=== PATIENT | male | born 2000 | race Caucasian/White ===

== ENCOUNTER 2018-05-25 19:27 | Inpatient (IN) | payer OTHER ==
[2018-05-25 19:36] VITALS: O2SAT 97
--- NOTE | 2018-05-25 20:14 | ED PDOC ---
HPI: Psych/Substance Abuse Time Seen by Provider: 05/25/18 19:57 Chief Complaint (Nursing): Psychiatric Evaluation Chief Complaint (Provider): Suicidal History Per: Patient History/Exam Limitations: no limitations Onset/Duration Of Symptoms: Days (few days) Additional Complaint(s): Pt. is suicidal, no act on his thoughts. Feels depressed. Not homicidal. No drugs, etoh, weakness, headaches, dizziness, chest pain. No abd pain. Past Medical History Reviewed: Nursing Documentation, Vital Signs Vital Signs: Last Vital Signs Temp 98 F 05/25/18 19:31 Pulse 63 05/25/18 19:31 Resp 16 05/25/18 19:31 BP 124/60 05/25/18 19:31 Pulse Ox 97 05/25/18 19:31 - Medical History PMH: Bipolar Disorder Denies: Diabetes, Hepatitis, HIV, HTN, Chronic Kidney Disease, Seizures, Sexually Transmitted Disease - Surgical History Surgical History: No Surg Hx - Family History Family History: States: Unknown Family Hx - Home Medications Home Medications: Ambulatory Orders Medication Instructions Recorded No Known Home Med 08/01/14 - Allergies Allergies/Adverse Reactions: Allergies Allergy/AdvReac Type Severity Reaction Status Date / Time Penicillins Allergy RASH Verified 05/25/18 19:31 Review of Systems ROS Statement: Except As Marked, All Systems Reviewed And Found Negative Psych: Positive for: Depression, Suicidal ideation Physical Exam - Reviewed Nursing Documentation Reviewed: Yes Vital Signs Reviewed: Yes - Physical Exam Appears: Positive for: Non-toxic, No Acute Distress Head Exam: Positive for: ATRAUMATIC, NORMAL INSPECTION, NORMOCEPHALIC Skin: Positive for: Normal Color, Warm, DRY Eye Exam: Positive for: EOMI, Normal appearance, PERRL ENT: Positive for: Normal ENT Inspection Neck: Positive for: Normal, Painless ROM Cardiovascular/Chest: Positive for: Regular Rate, Rhythm Respiratory: Positive for: CNT, Normal Breath Sounds Gastrointestinal/Abdominal: Positive for: Normal Exam, Soft Back: Positive for: Normal Inspection. Negative for: L CVA Tenderness, R CVA Tenderness Extremity: Positive for: Normal ROM Neurological/Psych: Positive for: Awake, Alert, Normal Tone - ECG O2 Sat by Pulse Oximetry: 97 Pulse Ox Interpretation: Normal - Progress ED Course And Treament: 2350: Crisis saw pt. and will admit. AAOx3. Medically stable for crisis. Disposition - Clinical Impression Clinical Impression: Depression - Patient ED Disposition Is Patient to be Admitted: Yes Counseled Patient/Family Regarding: Studies Performed, Diagnosis - Disposition Disposition Time: 19:01 Condition: STABLE - Pt Status Changed To: Hospital Disposition Of: Inpatient - Admit Certification Admit to Inpatient:: After my assessment, the patient will require hospitalization for at least two midnights. This is because of the severity of symptoms shown, intensity of services needed, and/or the medical risk in this patient being treated as an outpatient. - POA Present On Arrival: None
[2018-05-25 21:28] LABS: BENZODIAZEPINES, UR NEGATIVE (NEGATIVE)
[2018-05-25 21:29] LABS: BARBITURATES, UR NEGATIVE (NEGATIVE); OPIATES, UR NEGATIVE (NEGATIVE); PHENCYCLIDINE, UR NEGATIVE (NEGATIVE)
[2018-05-26] MEDS ORDERED: DiphenhydrAMINE 50 mg/ml Inj IM PRN (00:48)
[2018-05-26] MEDS ORDERED: Magnesium Hydroxide Susp 30 ml UD PO PRN (00:48)
[2018-05-26] MEDS ORDERED: Alum-Mag Hydrox-Simethicone Susp (30 mL) PO PRN (00:48)
--- NOTE | 2018-05-26 01:16 | PCM.BM ---
<Sara Fine - Last Filed: 05/26/18 01:14> Treatment Plan Problems - Problems identified on initial assessmt High Risk: Violence Date Initiated: 05/26/18 Time Initiated: 01:14 Assessment reference: NA Status: Active Ineffective Coping Date Initiated: 05/26/18 Time Initiated: 01:14 Assessment reference: NA Status: Active Treatment assets and liabiliti Patient Assests: cooperative, ADL independent, physically healthy (Hx violent behaviors and been incarceratied for aggravated assault), good support system, negotiates basic needs, cognitively intact Patient Liabilities: financial problems, relationship conflicts, substance abuse - Milieu Protocol Maintain good personal hygiene: daily Encourage regular showers, daily Remind patient to perform daily oral care, daily Assist patient to perform ADL's Conduct patient checks and document Observation sheet: Q15 minutes Maintain personal safety: every shift Educate patient to report safety concerns to staff, every shift Monitor environment for contraband/sharps Medication safety: Monitor for expected outcome, potential side effects: every shift, Assess barriers to learning: every shift, Assess readiness for medication education: every shift <Angel Alvarez - Last Filed: 05/31/18 09:08> - Diagnosis (1) Bipolar 1 disorder Status: Acute Interventions: start mood stabilizer/ abilify 05/31/18 09:08 <Brook Deshpande - Last Filed: 05/31/18 14:00> Treatment assets and liabiliti Patient Assests: adapts well, cooperative, educated (Pt. reports a 10th grade education and plans to complete a GED.), insightful, motivated, resourceful, ADL independent, physically healthy, good support system (Pt. reports having a loving and circumstantially supportive relationship with parents, 3 younger siblings (1 younger brother ), and cousins. ), cognitively intact Patient Liabilities: live alone (Pt. reports recently being kicked out of maternal grandmothers home and having to go live with paternal grandmother. Pt. reports plan to return to grandmothers home. ), financial problems (Pt. reports limited employment hx working through [employer] agencies. Pt. denies having financial resources and reports difficulties finding employment secondary to criminal record.), relationship conflicts (Pt. reports discord with uncle. Pt. reports mother resides in [place], explaining not being able to live with her to avoid being around people who got me in trouble and not wanting to burden mother. ), substance abuse (Pt. reports hx of polysubstance abuse (Xanax, ETOH, cannabis) since age 12. Pt. reports maternal grandmother began giving pt. Xanax at age 12 to control the anger. Pt. reports hx of [place] substance abuse tx [place] age 13 (completed 27 days; kicked out for fighting). Pt. reports longest period of sobriety as 8 months (while incarcerated). Pt. reports recent Xanax, etoh, and cannabis abuse. ), legal issue (Pt. reports recently serving 8 months for aggravated assault in [facility]. Pt. currently on probation in [facility] and reports that terms are not using and not getting in trouble.) Family Contact Family involvement: Family/SO is involved Family contact: Patient agrees to contact, Family has been contacted by patient Family contact name: Pablo(father)([phone]) Family contacted how many times per week?: 2 Family contact comment: Automatic Cigar Wrapper Tender placed call to pts father (Pablo [phone]) to discuss pts progress on 3NP/ discharge planning, collect further collateral, and address family concerns. Automatic Cigar Wrapper Tender provided clinical updates regarding pts progress since admission. Automatic [employer]ig[employer] W[employer] Tender provided psychoeducation regarding nature of tx provided on 3NP, pts current medication management, and aftercare. [employer] Cig[employer] W[employer] Tender notified pts father that pt. has requested to be referred to a co-occurring IOP with [facility] and has demonstrated improvement in insight regarding illness/bxs and motivation for tx. Automatic Cigar Wrapper Tender emphasized importance of adherence with aftercare to improve functioning/ensure safety in the community and reduce risk of future hospitalizations. Pts father expressed understanding of the above and being glad that pt. is engaging in tx. Pts father expressed concerns regarding pts presentation on 05/30, explaining that pt. was more irritable and labile that on the days prior. Automatic Cig[employer] Wrapper Tender explained that this bx was noted by tx team and that medications are being adjusting to address irritability, lability, and poor sleep. Pts father requested to be contacted on day of discharge to schedule pick-up time. Automatic Cigar Wrapper Tender received call from Dr. Alvarez shortly after reporting plan to stop Abilify secondary to increase in irritability and restlessness. Trileptal to be started. Pt. anticipated to remain on 3NP through the weekend for further stabilization. Automatic Cigar Wrapper Tender placed 2nd call to pts father following conversation with Dr. Alvarez. Pts father notified of the above. Pts father expressed understanding and denied having concerns. - Goals for Treatment Patient goals for treatment: Patient to continue stabilization on 3NP through medication management and group/supportive therapy to address sxs of depression as exhibited by restlessness, impulsivity, irritability, and eliminate SI. Patient to be encouraged to attend groups regularly to promote self-awareness, sobriety, anger management and improve insight, impulse control, compliance, coping skills and self-esteem. Patient to be provided with referral for appropriate level of aftercare to reduce risk of future hospitalizations and ensure safety in the community. Discharge/Continuing Care - Education Needs Education Needs: Patient Medication, Patient Diagnosis/Disease Process, Patient Coping Skills, Patient Anger Management skills, Patient Community resources, Patient Aftercare Safety Plan - Discharge Discharge Criteria: Tolerates medication w/o severe side effects, Free of Suicidal thoughts, Free of agitation, Normal sleep pattern, Ability to care for self, Reduction of target symptoms (restlessness ; irritability) Discharge to:: Home, With Family - Treatment Team Participation Patient/Family/SO Statement: 05/30/18 15:13 Patient attended tx team this morning to discuss progress on 3NP and tx goals. Pt. reported improvement in impulse control and decrease in irritability since admission. Pt. presented with ongoing c/o restlessness and anxiety resulting in feelings of frustration and sadness. Pt. reported sleep disturbances on 05/29 resulting in poor energy/motivation today. Recommended medication changes discussed at length. Pt. expressed understanding and belief that Zoloft was contributing to pts restlessness. Pt. denied SI/HI and was able to contract for safety on 3NP. Pt. expressed motivation for tx and adherence with aftercare. Pt. visible on 3NP and observed socializing appropriately with select peers. Affect remains depressed but brighter than upon admission. Discussed with Family/SO: Yes Was Patient/Family/SO present at Treatment Team Meeting: Yes
--- NOTE | 2018-05-26 09:23 | PCM.PSYCH ---
Initial Psychiatric Evaluation - Initial Psychiatric Evaluation Type of Admission: Voluntary Legal Status: Capacity Chief Complaint (in patient's own words): "I was having suicidal thoughts." Patient's Reaction to Hospitalization: HPI: 18 yo male w/ h/o prior admission to [facility] for ADHD, DMDD, ODD, h/o non- compliance with treatment and medications, presents w/ suicidal ideation w/ plan to jump out of the window. He reports worsening depression, anxiety, feeling of hopelessness and sleep disturbances. He denies acute AH/VH/paranoia/delusions. PPHx: Prior admission to [facility] in 2014 for ADHD, DMDD, ODD; no current psychiatric treatment or medications; h/o treatment w/ Lexapro and Risperdal PMHx: Denies acute/chronic medical issues ALL: PCN SHx: Lives w/ grandmother; completed 9th grade, unemployed; abuses Xanax 2 mg sticks (gets from grandmother or others), abuses cannabis; smokes 5 cig/day (declined smoking cessation) FHx: Denied family h/o mental illness Current Medications: Active Medications Generic Name Dose Route Start Last Admin Trade Name Freq PRN Reason Stop Dose Admin Acetaminophen 650 mg 05/26/18 00:48 Tylenol 325mg Tab PO Q4 PRN pain level 4-7 Al Hydrox/Mg Hydrox/Simethicone 30 ml 05/26/18 00:48 Maalox Plus 30 Ml PO Q4 PRN Dyspepsia Diphenhydramine HCl 50 mg 05/26/18 00:48 Benadryl IM Q6 PRN Extrapyramidal S/S Unable PO Diphenhydramine HCl 50 mg 05/26/18 00:48 Benadryl PO Q6 PRN Extrapyramidal Symptoms Diphenhydramine HCl 50 mg 05/26/18 00:55 05/26/18 02:00 Benadryl PO 50 mg HS PRN Administration Sleep Haloperidol 5 mg 05/26/18 00:48 Haldol PO Q4 PRN Agitation Haloperidol Lactate 5 mg 05/26/18 00:48 Haldol IM Q4 PRN Agitation, Unable to Take PO Lorazepam 2 mg 05/26/18 00:48 Ativan IM Q6H PRN Anxiety/Agitation,Unable PO Lorazepam 1 mg 05/26/18 00:48 Ativan PO Q6H PRN Anxiety/Agitation Magnesium Hydroxide 30 ml 05/26/18 00:48 Milk Of Magnesia PO HS PRN Constipation Sertraline HCl 50 mg 05/26/18 09:15 Zoloft PO DAILY MADAN Past Psychiatric History - Past Psychiatric History Previous Treatment History: Inpatient Pertinent Medical Hx (Current Medical&Sleep Prob, Allergies): Allergies Allergy/AdvReac Type Severity Reaction Status Date / Time Penicillins Allergy RASH Verified 05/25/18 19:31 No Known Home Med 08/01/14 Review of Systems - Psychiatric Psychiatric: As Per HPI, Abnormal Sleep Pattern, Anhedonia, Anxiety, Change in Appetite, Depression, Difficulty Concentrating, Hopelessness, Irritability, Mood Swings, Suicidal Ideation Mental Status Examination - Personal Presentation Personal Presentation: Looks stated age - Affect Affect: Constricted, Depressed - Motor Activity Motor Activity: Calm - Reliability in Providing Information Reliability in Providing Information: Good - Speech Speech: Organized, Coherent - Mood Mood: Depressed, Anxious - Formal Thought Process Formal Thought Process: No Impairment - Obsessions/Compulsions Obsessions: No Compulsions: No - Cognitive Functions Orientation: Person, Place, Situation, Time Sensorium: Alert Attention/Concentration: Attentive Judgement: Intact, as evidence by: Insight regarding need for hospitalization Memory: Recent intact, as evidence by: Ability to recall events of the day, Remote intact, as evidenced by: Abilit to recall sig. life events, Remote intact, as evidenced by: Ability to recall historical events - Risk Risk: Suicidal, Diminished functioning - Strength & Assets Inventory Strength & Assets Inventory: Cooperative DSM 5 DX - DSM 5 DSM 5 Diagnosis: Major Depressive Disorder; Benzodiazepine Use Disorder; Cannabis Use Disorder - Recommended/Plan of Treatment Treatment Recommendations and Plan of Treatment: Major Depressive Disorder; Benzodiazepine Use Disorder; Cannabis Use Disorder -Admit to psychiatry unit -Start Zoloft -Individual and group therapy -Medicine consult -Psychoeducation -Disposition planning Projected ELOS: 5-10 days Discharge Plan and Discharge Criteria: Discharge when patient is psychiatrically stable - Smoking Cessation Smoking Cessation Initiated: No Reason for not providing: Patient declined
--- NOTE | 2018-05-27 08:41 | PCM.PYCHPN ---
Psychiatric Progress Note - Psychiatric Progress Note Patient seen today, length of contact: Pt evaluated, case discussed w/ team, chart reviewed Patient Chief Complaint: "I was having suicidal thoughts." Problems Identified/Issues Discussed: Patient continues to report feeling depressed and anxious. He also reports feelings of anger intermittently. He denies acute suicidal ideation/plan/intent. He is calm and cooperative w/ ticket writer. No adverse effects to medications reported. Medication Change: No Medical Record Reviewed: Yes Consults ordered or reviewed: Medicine consult Mental Status Examination - Cognitive Function Orientation: Person, Place, Situation, Time Memory: Intact Attention: WNL Concentration: WNL Association: WNL Fund of Knowledge: [facility] Decription of patient's judgement and insights: Improving I/J - Mood Mood: Depressed, Anxious - Affect Affect: Constricted, Depressed - Formal Thought Process Formal Thought Process: No Impairment Psychotic Thoughts and Behaviors: No AH/VH/paranoia/delusions - Suicidal Ideation Suicidal Ideation: No - Homicidal Ideation Homicidal Ideation: No Goal/Treatment Plan - Goal/Treatment Plan Need for Continued Stay: Remain at risks for inpatient hospitalization, Severe depression anxiety Progress Toward Problem(s) and Goals/Treatment Plan: Major Depressive Disorder; Benzodiazepine Use Disorder; Cannabis Use Disorder -Continue Zoloft -Individual and group therapy -Medicine consult -Psychoeducation -Disposition planning
--- NOTE | 2018-05-27 15:51 | CP.PCM.CON ---
History of Present Illness - History of Present Illness History of Present Illness: 18 yo male with history of ADHD admitted to psyche unit because of suicidal ideation Review of Systems - Review of Systems All systems: reviewed and no additional remarkable complaints except (aside from those mentioned above, 12 point system review were negative by me) Past Patient History - Tetanus Immunizations Tetanus Immunization: Up to Date - Past Medical History & Family History Past Medical History?: No - Past Social History Smoking Status: Light Smoker < 10 Cigarettes Daily Chewing Tobacco Use: No Cigar Use: No Alcohol: Occasional Drugs: Denies - CARDIAC Hx Cardiac Disorders: No Hx Hypertension: No - PULMONARY Hx Tuberculosis: No - NEUROLOGICAL HX Cerebrovascular Accident: No Hx Seizures: No - HEENT Hx HEENT Problems: No - RENAL Hx Chronic Kidney Disease: No - ENDOCRINE/METABOLIC Hx Endocrine Disorders: No - HEMATOLOGICAL/ONCOLOGICAL Hx Cancer: No Hx Human Immunodeficiency Virus (HIV): No - INTEGUMENTARY Hx Dermatological Problems: No - MUSCULOSKELETAL/RHEUMATOLOGICAL Hx Musculoskeletal Disorders: No - GASTROINTESTINAL Hx Gastrointestinal Disorders: No - GENITOURINARY/GYNECOLOGICAL Hx Sexually Transmitted Disorders: No - PSYCHIATRIC Hx Substance Use: Yes (marijuana, xanax) - SURGICAL HISTORY Hx Surgeries: No - ANESTHESIA Hx Anesthesia: No Meds Allergies/Adverse Reactions: Allergies Allergy/AdvReac Type Severity Reaction Status Date / Time Penicillins Allergy RASH Verified 05/25/18 19:31 - Medications Medications: Current Medications Acetaminophen (Tylenol 325mg Tab) 650 mg PO Q4 PRN PRN Reason: pain level 4-7 Al Hydrox/Mg Hydrox/Simethicone (Maalox Plus 30 Ml) 30 ml PO Q4 PRN PRN Reason: Dyspepsia Diphenhydramine HCl (Benadryl) 50 mg IM Q6 PRN PRN Reason: Extrapyramidal S/S Unable PO Diphenhydramine HCl (Benadryl) 50 mg PO Q6 PRN PRN Reason: Extrapyramidal Symptoms Last Admin: 05/26/18 13:56 Dose: 50 mg Diphenhydramine HCl (Benadryl) 50 mg PO HS PRN PRN Reason: Sleep Last Admin: 05/26/18 22:02 Dose: 50 mg Haloperidol (Haldol) 5 mg PO Q4 PRN PRN Reason: Agitation Last Admin: 05/26/18 13:56 Dose: 5 mg Haloperidol Lactate (Haldol) 5 mg IM Q4 PRN PRN Reason: Agitation, Unable to Take PO Lorazepam (Ativan) 2 mg IM Q6H PRN PRN Reason: Anxiety/Agitation,Unable PO Lorazepam (Ativan) 1 mg PO Q6H PRN PRN Reason: Anxiety/Agitation Last Admin: 05/26/18 13:56 Dose: 1 mg Magnesium Hydroxide (Milk Of Magnesia) 30 ml PO HS PRN PRN Reason: Constipation Sertraline HCl (Zoloft) 50 mg PO DAILY MADAN Last Admin: 05/27/18 11:58 Dose: 50 mg Physical Exam - Constitutional Appears: No Acute Distress - Head Exam Head Exam: ATRAUMATIC - Eye Exam Eye Exam: absent: Scleral icterus - ENT Exam ENT Exam: Mucous Membranes Moist - Neck Exam Neck exam: Negative for: Meningismus - Respiratory Exam Respiratory Exam: absent: Rales, Rhonchi, Wheezes, Respiratory Distress - Cardiovascular Exam Cardiovascular Exam: REGULAR RHYTHM, +S1, +S2 - GI/Abdominal Exam GI & Abdominal Exam: Soft. absent: Tenderness - Rectal Exam Rectal Exam: Deferred - Neurological Exam Neurological exam: Alert, Oriented x3 - Psychiatric Exam Psychiatric exam: Normal Affect - Skin Skin Exam: Dry, Intact Results - Vital Signs Recent Vital Signs: Last Vital Signs Temp 97.8 F 05/27/18 09:00 Pulse 73 05/27/18 09:00 Resp 18 05/27/18 09:00 BP 109/68 05/27/18 09:00 Pulse Ox 97 05/26/18 00:06 Assessment & Plan (1) Suicidal ideation Status: Acute Comment: psyche is managing
[2018-05-28 06:40] LABS: ALB/GLOB RATIO 1.2 (1.0-2.1); ALBUMIN 4.5 g/dL (3.5-5.0); ALT/SGPT 18 U/L (21-72); AST/SGOT 19 U/L (17-59); BLOOD UREA NITROGEN 22 mg/dl (9-20); CALCIUM 9.5 mg/dL (8.4-10.2); GFR NON-AFRICAN AMERICAN > 60; HDL CHOLESTEROL 57 MG/DL (30-70)
[2018-05-28 06:41] LABS: BASO % 0.8 % (0.0-2.0); EOS # 0.1 K/uL (0.0-0.7); HEMOGLOBIN 14.8 g/dL (12.0-18.0); LYMPH # 1.7 K/uL (1.0-4.3); LYMPH % 28.1 % (20.0-40.0); MEAN CELL VOLUME 84.3 fl (80.0-94.0); MEAN CORPUSCULAR HEMOGLOBIN 27.6 pg (27.0-31.0); MEAN CORPUSCULAR HGB CONC 32.7 g/dL (33.0-37.0); MEAN PLATELET VOLUME 10.2 fl (7.2-11.7); MONO # 0.6 K/uL (0.0-0.8); MONO % 10.9 % (0.0-10.0); NEUT # 3.5 K/uL (1.8-7.0); NEUT % 59.2 % (50.0-75.0); NRBC % 0.1 % (0.0-0.0); RBC 5.36 Mil/uL (4.40-5.90); RED CELL DISTRIBUTION WIDTH 14.7 % (11.5-14.5); WHITE BLOOD COUNT 5.9 K/uL (4.8-10.8)
[2018-05-28 06:52] LABS: LDL CHOLESTEROL 87 mg/dL (0-129)
--- NOTE | 2018-05-28 19:43 | PCM.PYCHPN ---
Psychiatric Progress Note - Psychiatric Progress Note Patient seen today, length of contact: Pt evaluated, case discussed w/ team, chart reviewed Patient Chief Complaint: reports was feeling anxious and depressed and was irritable now is feeling a little better reportedly had visit with father yesterday reported as positive. reports previous treatment in past several years ago. staff report pt rx adherent pt denies side effects medications. Problems Identified/Issues Discussed: alteration in mood alteration in coping Medical Problems: per chart Diagnostic Results: per psychiatry per medicine per nursing per psychiatry per social work per recreational therapy DSM 5 Symptoms Update: improving mood less irritability reported Medication Change: No Medical Record Reviewed: Yes Consults ordered or reviewed: pt seen by hospitalist Mental Status Examination - Cognitive Function Orientation: Person, Place, Situation, Time Memory: Intact Attention: WNL Concentration: WNL Association: WNL Fund of Knowledge: WN Decription of patient's judgement and insights: some what impaired - Mood Mood: Depressed Additional comments: somewhat lessened - Affect Affect: Constricted, Depressed - Formal Thought Process Formal Thought Process: No Impairment - Suicidal Ideation Suicidal Ideation: No - Homicidal Ideation Homicidal Ideation: No Goal/Treatment Plan - Goal/Treatment Plan Need for Continued Stay: Remain at risks for inpatient hospitalization, Severe depression anxiety Progress Toward Problem(s) and Goals/Treatment Plan: inpt ute adjust meds per status discharge planning in progress pt verbalizes desire to participate in after care Estimated Date of D/C: 05/30/18 - Smoking Cessation Reason for not providing: pt defers
[2018-05-28 23:08] LABS: URINE BILIRUBIN NEGATIVE (NEGATIVE); URINE BLOOD NEGATIVE (NEGATIVE); URINE CLARITY SLIGHTY-CLOUDY (Clear); URINE COLOR YELLOW (YELLOW); URINE GLUCOSE (UA) NEG (NEGATIVE); URINE LEUKOCYTE ESTERASE NEG Leu/uL (Negative); URINE PROTEIN NEGATIVE (NEGATIVE); URINE UROBILINOGEN 0.2-1.0 mg/dL (0.2-1.0)
--- NOTE | 2018-05-29 15:42 | PCM.PYCHPN ---
Psychiatric Progress Note - Psychiatric Progress Note Patient seen today, length of contact: Pt evaluated, case discussed w/ team, chart reviewed Patient Chief Complaint: I get very angry and impulsive then I regret it Problems Identified/Issues Discussed: pt evaluated reported feeling increasingly anxious and irritable, pt described episodes of poor impulse control, resulting in poor anger management which he then regrets, discussed starting a mood stabilizer , abilify and discontinuing zoloft gradually , cbt provided discussing coping skills for anger management pt presenting with edginess discussed adding neurontin denied suicidal or homicidal ideation denied perceptual disturbances d DSM 5 Symptoms Update: impulse control disorder rule out bipolar I disorder cannabis use Medication Change: Yes (start abilify) Medical Record Reviewed: Yes Mental Status Examination - Cognitive Function Orientation: Person, Place, Situation, Time Memory: Intact Attention: WNL Concentration: WNL Association: WNL Fund of Knowledge: WNL - Mood Mood: Depressed - Affect Affect: Constricted, Depressed - Formal Thought Process Formal Thought Process: No Impairment - Suicidal Ideation Suicidal Ideation: No - Homicidal Ideation Homicidal Ideation: No Goal/Treatment Plan - Goal/Treatment Plan Need for Continued Stay: Remain at risks for inpatient hospitalization, Severe depression anxiety Progress Toward Problem(s) and Goals/Treatment Plan: decrease zoloft to 25mg then discontinue start abilify 5mg qhs increase gradually start neurontin 100mg tid cbt group and supportive therapy Estimated Date of D/C: 06/01/18
--- NOTE | 2018-05-30 14:55 | PCM.PYCHPN ---
Psychiatric Progress Note - Psychiatric Progress Note Patient seen today, length of contact: Pt evaluated, case discussed w/ team, chart reviewed Patient Chief Complaint: I had a hard time sleeping yesterday Problems Identified/Issues Discussed: pt evaluated evaluated with treatment team, presenting with anxious mood and irritable affect, reported poor sleep, continues to feel edgy, reported episodes of mood lability and poor impulse control , discussed increasing abilify for mood stabilization and discontinuing zoloft, motivational therapy provided in reference to cannabis use on current mental status, discussed using neurontin for anxiety, encouraged pt to attend groups pt denied suicidal or homicidal ideation denied perceptual disturbances d DSM 5 Symptoms Update: bipolar disorder cannabis abuse Medication Change: Yes (increase abilify) Medical Record Reviewed: Yes Mental Status Examination - Cognitive Function Orientation: Person, Place, Situation, Time Memory: Intact Attention: WNL Concentration: WNL Association: WNL Fund of Knowledge: WNL - Mood Mood: Depressed, Anxious - Affect Affect: Constricted, Depressed Additional comments: labile, irritable - Speech Speech: Appropriate - Formal Thought Process Formal Thought Process: No Impairment - Suicidal Ideation Suicidal Ideation: No - Homicidal Ideation Homicidal Ideation: No Goal/Treatment Plan - Goal/Treatment Plan Need for Continued Stay: Remain at risks for inpatient hospitalization, Severe depression anxiety Progress Toward Problem(s) and Goals/Treatment Plan: discontinue zoloft increase abilify 10mg qhs start trazodone 50mg qhs neurontin 100mg tid cbt group and supportive therapy Estimated Date of D/C: 06/01/18
--- NOTE | 2018-05-31 12:39 | PCM.PYCHPN ---
Psychiatric Progress Note - Psychiatric Progress Note Patient seen today, length of contact: Pt evaluated, case discussed w/ team, chart reviewed Patient Chief Complaint: I am feeling very restless and anxious Problems Identified/Issues Discussed: pt on evaluation presenting with increased anxiety , restlessness and irritability , reported continues to feel edgy and having poor sleep with vivid dreans discussed with pt possible akathisia with abilify and also possible increased anxiety with zoloft discussed starting trileptal for mood stabilization , with discontinuing of abilify and zoloft, discussed possible diagnosis of bipolar disorder and the effect of cannabis use on current mental status , encouraged pt to attend groups, pt denied suicidal or homicidal ideation denied perceptual disturbances d DSM 5 Symptoms Update: bipolar disorder cannabis abuse Medication Change: Yes (start trileptal ) Medical Record Reviewed: Yes Mental Status Examination - Cognitive Function Orientation: Person, Place, Situation, Time Memory: Intact Attention: WNL Concentration: WNL Association: WNL Fund of Knowledge: WNL - Mood Mood: Depressed, Anxious - Affect Affect: Constricted, Depressed - Speech Speech: Appropriate - Formal Thought Process Formal Thought Process: No Impairment - Suicidal Ideation Suicidal Ideation: No - Homicidal Ideation Homicidal Ideation: No Goal/Treatment Plan - Goal/Treatment Plan Need for Continued Stay: Remain at risks for inpatient hospitalization, Severe depression anxiety Progress Toward Problem(s) and Goals/Treatment Plan: discontinue zoloft discontinue abilify start trileptal 150mg bid, increase gradually neurontin 100mg tid trazodone 50 mg qhs monitor pt for psychopharmacological effects and side effect profile cbt group and supportive therapy Estimated Date of D/C: 06/01/18
[2018-06-01 11:57] VITALS: BMI 22.8
--- NOTE | 2018-06-01 13:16 | PCM.PYCHPN ---
Psychiatric Progress Note - Psychiatric Progress Note Patient seen today, length of contact: Pt evaluated, case discussed w/ team, chart reviewed Patient Chief Complaint: I still feel very anxious and irritable and I cant sleep Problems Identified/Issues Discussed: pt evaluated continues to report vivid dreams, poor sleep with early insomnia, discussed discontinuing trazadone, pt also reports continues to be anxious and irritable, with mood swings, discussed discontinuing trileptal and starting seroquel, cbt provided discussed with pt relaxation techniques with increased anxiety pt denied suicidal or homicidal ideation denied perceptual disturbances d DSM 5 Symptoms Update: bipolar I disorder cannabis abuse Medication Change: Yes (start seroquel) Medical Record Reviewed: Yes Mental Status Examination - Cognitive Function Orientation: Person, Place, Situation, Time Memory: Intact Attention: WNL Concentration: WNL Association: WNL Fund of Knowledge: WNL - Mood Mood: Depressed, Anxious - Affect Affect: Constricted, Depressed - Speech Speech: Appropriate - Formal Thought Process Formal Thought Process: No Impairment - Suicidal Ideation Suicidal Ideation: No - Homicidal Ideation Homicidal Ideation: No Goal/Treatment Plan - Goal/Treatment Plan Need for Continued Stay: Remain at risks for inpatient hospitalization, Severe depression anxiety Progress Toward Problem(s) and Goals/Treatment Plan: increase neurontin 200mg tid discontinue trazodone, discontinue trileptal start seroquel 200mg qhs monitor pt for psychopharmacological effects and side effect profile cbt group and supportive therapy Estimated Date of D/C: 06/01/18
--- NOTE | 2018-06-02 10:20 | PCM.PYCHPN ---
Psychiatric Progress Note - Psychiatric Progress Note Patient seen today, length of contact: Pt evaluated, case discussed w/ team, chart reviewed Patient Chief Complaint: pt has remained very angry and has been having angry mood outbursts and exhibiting bizarre and inappropriate behaviors as he was masturbating in front of another girl who was transfered to another unit.pt remains with poor insight and poor judgement and need further stabilization.. Medication Change: Yes (increase seroquel) Medical Record Reviewed: Yes Mental Status Examination - Cognitive Function Orientation: Person, Place, Situation, Time Memory: Intact Attention: WNL Concentration: WNL Association: WNL Fund of Knowledge: WNL - Mood Mood: Depressed, Anxious - Affect Affect: Constricted, Depressed - Speech Speech: Appropriate - Formal Thought Process Formal Thought Process: No Impairment - Suicidal Ideation Suicidal Ideation: No - Homicidal Ideation Homicidal Ideation: No Goal/Treatment Plan - Goal/Treatment Plan Need for Continued Stay: Remain at risks for inpatient hospitalization, Severe depression anxiety Progress Toward Problem(s) and Goals/Treatment Plan: will increase seroquel to 250 mg hs and add 25 mg of seroquel in the morning and pt agreed to plan. will engage pt in therapy and groups d/c plans as per dr reynoso. Estimated Date of D/C: 06/01/18
--- NOTE | 2018-06-03 13:29 | PCM.PYCHPN ---
Psychiatric Progress Note - Psychiatric Progress Note Patient seen today, length of contact: Pt evaluated, case discussed w/ team, chart reviewed Patient Chief Complaint: pt has remained internally preoccupied and has remained very angry and has been having angry mood outbursts and exhibiting bizarre and inappropriate behaviors as he was masturbating in front of another girl who was transfered to another unit.pt remains with poor insight and poor judgement and need further stabilization.. Medication Change: Yes (increase seroquel) Medical Record Reviewed: Yes Mental Status Examination - Cognitive Function Orientation: Person, Place, Situation, Time Memory: Intact Attention: WNL Concentration: WNL Association: WNL Fund of Knowledge: WNL - Mood Mood: Depressed, Anxious - Affect Affect: Constricted, Depressed - Speech Speech: Appropriate - Formal Thought Process Formal Thought Process: No Impairment - Suicidal Ideation Suicidal Ideation: No - Homicidal Ideation Homicidal Ideation: No Goal/Treatment Plan - Goal/Treatment Plan Need for Continued Stay: Remain at risks for inpatient hospitalization, Severe depression anxiety Progress Toward Problem(s) and Goals/Treatment Plan: will increase seroquel to 250 mg hs and add 25 mg of seroquel in the morning and pt agreed to plan. will engage pt in therapy and groups d/c plans as per dr reynoso. Estimated Date of D/C: 06/01/18
[2018-06-04] MEDS ORDERED: Divalproex 500 mg DR(BID formulation) PO STA (09:40)
--- NOTE | 2018-06-04 14:39 | PCM.PYCHPN ---
Psychiatric Progress Note - Psychiatric Progress Note Patient seen today, length of contact: Pt evaluated, case discussed w/ team, chart reviewed Patient Chief Complaint: I need to leave now Problems Identified/Issues Discussed: pt evaluated , angry and irritable, requesting to be discharged, pt has been noted by staff to be explosive at times and pacing on the unit, discussed with pt the need to continue with treatment and medication adjustment, he became irritable, threatening to physically hurt one of the staff or the patients, pt continues to present with impulsivity , labile affect and poor impulse control DSM 5 Symptoms Update: bipolar I disorder cannabis abuse Medication Change: Yes (start depakote) Medical Record Reviewed: Yes Mental Status Examination - Cognitive Function Orientation: Person, Place, Situation, Time Memory: Intact Attention: WNL Concentration: WNL Association: WNL Fund of Knowledge: WNL - Mood Mood: Depressed, Anxious - Affect Additional comments: labile, angry irritable - Speech Speech: Loud - Formal Thought Process Formal Thought Process: Paranoia - Suicidal Ideation Suicidal Ideation: No - Homicidal Ideation Homicidal Ideation: No Goal/Treatment Plan - Goal/Treatment Plan Need for Continued Stay: Remain at risks for inpatient hospitalization, Severe depression anxiety Progress Toward Problem(s) and Goals/Treatment Plan: start depakote 500mg bid neurontin 200mg tid seroquel 300mg qhs monitor pt for psychopharmacological effects and side effect profile cbt group and supportive therapy Estimated Date of D/C: 06/08/18
[2018-06-04] MEDS: Divalproex 500 mg DR(BID formulation) PO SCH ×2 (17:49→19:41)
[2018-06-05] MEDS: Divalproex 500 mg DR(BID formulation) PO SCH (08:55)
--- NOTE | 2018-06-05 15:24 | PCM.PYCHPN ---
Psychiatric Progress Note - Psychiatric Progress Note Patient seen today, length of contact: Pt evaluated, case discussed w/ team, chart reviewed Patient Chief Complaint: I need to go home , I am tired of people playing games Problems Identified/Issues Discussed: pt evaluated this morning presenting with angry mood and labile affect due to being provoked verbally by another patient , later in the day met with patient together with his parents in a scheduled meeting, patient continued to request discharge, discussed with pt the need to continue with treatment inpatient and importance of medication stabilization, pt became very angry verbally abusive , walked out of the meeting and started punching claudio, needed PRN medications to be deescalated , pt continues to have very low frustration tolerance impulsive behaviour , frequent anger episodes and threatening behaviour discussed with pt increasing depakote and taking it pm to avoid day sedation though review of art work pt exhibiting paranoid thought , will start low dose of risperidone DSM 5 Symptoms Update: impulse control disorder rule out bipolar disorder cannabis abuse Medication Change: Yes (increase depakote ) Medical Record Reviewed: Yes Mental Status Examination - Cognitive Function Orientation: Person, Place, Situation, Time Memory: Intact Attention: WNL Concentration: WNL Association: WNL Fund of Knowledge: WNL - Mood Mood: Depressed, Anxious - Affect Affect: Constricted, Depressed Additional comments: labile impulsive angry - Speech Speech: Loud - Formal Thought Process Formal Thought Process: Paranoia - Suicidal Ideation Suicidal Ideation: No - Homicidal Ideation Homicidal Ideation: No Goal/Treatment Plan - Goal/Treatment Plan Need for Continued Stay: Remain at risks for inpatient hospitalization, Severe depression anxiety Progress Toward Problem(s) and Goals/Treatment Plan: increase depakote 1250mg qhs start risperidone 1mg po daily decrease seroquel gradually monitor pt for psychopharmacological effects and side effect profile cbt group and supportive therapy Estimated Date of D/C: 06/08/18
[2018-06-05] MEDS: Divalproex 250 mg DR(BID formulation) PO SCH (21:00)
[2018-06-05] MEDS: Risperidone M tab 1 MG PO SCH ×2 (21:00→21:06)
--- NOTE | 2018-06-06 16:38 | PCM.PYCHPN ---
Psychiatric Progress Note - Psychiatric Progress Note Patient seen today, length of contact: Pt evaluated, case discussed w/ team, chart reviewed Patient Chief Complaint: I wish I can leave Problems Identified/Issues Discussed: pt evaluated with treatment team, behaviour more in control reported feeling less irritable, showing better communication with staff, less impulsive , more visibale on the unit attending groups, denied current suicidal or homicidal ideation denied side effects of medications Medication Change: Yes (increase risperidone ) Medical Record Reviewed: Yes Mental Status Examination - Cognitive Function Orientation: Person, Place, Situation, Time Memory: Intact Attention: WNL Concentration: WNL Association: WNL Fund of Knowledge: WNL - Mood Mood: Depressed, Anxious - Affect Affect: Constricted, Depressed - Speech Speech: Loud - Formal Thought Process Formal Thought Process: Paranoia, Circumstantial - Suicidal Ideation Suicidal Ideation: No - Homicidal Ideation Homicidal Ideation: No Goal/Treatment Plan - Goal/Treatment Plan Need for Continued Stay: Remain at risks for inpatient hospitalization, Severe depression anxiety Progress Toward Problem(s) and Goals/Treatment Plan: increase depakote 1250mg qhs increase risperidone 2mg neurontin 100mg tid discontinue seroquel monitor pt for psychopharmacological effects and side effect profile cbt group and supportive therapy Estimated Date of D/C: 06/08/18
[2018-06-06] MEDS: Risperidone M TAB 2 MG PO SCH (21:06)
[2018-06-06] MEDS: Divalproex 250 mg DR(BID formulation) PO SCH (21:06)
--- NOTE | 2018-06-07 15:19 | PCM.PYCHPN ---
Psychiatric Progress Note - Psychiatric Progress Note Patient seen today, length of contact: Pt evaluated, case discussed w/ team, chart reviewed Patient Chief Complaint: i feel better with the new medications Problems Identified/Issues Discussed: pt evaluated , reported feeling better with increase in risperidone, no reported side effects behaviour more in control reported feeling less irritable, showing better communication with staff, less impulsive , more visible on the unit attending groups, denied current suicidal or homicidal ideation denied side effects of medications DSM 5 Symptoms Update: impulse control disorder cannabis abuse Medication Change: No (increase risperidone ) Medical Record Reviewed: Yes Mental Status Examination - Cognitive Function Orientation: Person, Place, Situation, Time Memory: Intact Attention: WNL Concentration: WNL Association: WNL Fund of Knowledge: WNL - Mood Mood: Depressed, Anxious - Affect Affect: Constricted, Depressed - Speech Speech: Loud - Formal Thought Process Formal Thought Process: Paranoia, Circumstantial - Suicidal Ideation Suicidal Ideation: No - Homicidal Ideation Homicidal Ideation: No Goal/Treatment Plan - Goal/Treatment Plan Need for Continued Stay: Remain at risks for inpatient hospitalization, Severe depression anxiety Progress Toward Problem(s) and Goals/Treatment Plan: depakote 1250mg qhs / follow up on depakote level level tomorrow risperidone 2mg neurontin 100mg tid monitor pt for psychopharmacological effects and side effect profile cbt group and supportive therapy Estimated Date of D/C: 06/08/18
[2018-06-07 16:08] VITALS: RESP 18
[2018-06-07] MEDS: Risperidone M TAB 2 MG PO SCH (21:02)
[2018-06-07] MEDS: Divalproex 250 mg DR(BID formulation) PO SCH (21:03)
[2018-06-08 08:34] VITALS: BP 114/67; PULSE 71; TEMP 97.6
--- NOTE | 2018-06-08 11:55 | PCM.PYCHDC ---
Mental Status Examination - Mental Status Examination Orientation: Person, Place, Situation Memory: Intact Mood: Neutral Affect: Broad Speech: Appropriate Attention: WNL Concentration: WNL Association: WNL Fund of Knowledge: WNL Formal Thought Process: No Impairment Description of patient's judgement and insight: partial insight fair judgment Psychotic Thoughts and Behaviors: pt denied psychotic symptoms, non elicited Suicidal Ideation: No Current Homicidal Ideation?: No Discharge Summary - Discharge Note Reason for Hospitalization: as per admission note by dr herrera 1 yo male w/ h/o prior admission to [facility] for ADHD, DMDD, ODD, h/o non-compliance with treatment and medications, presents w/ suicidal ideation w/ plan to jump out of the window. He reports worsening depression, anxiety, feeling of hopelessness and sleep disturbances. He denies acute AH/VH/paranoia/delusions. Laboratory Data: Abnormal Lab Results 06/08/18 06:40 Valproic Acid 119.0 H Consultations:: List each consultation separately and include: 1. Reason for request. 2. Findings. 3. Follow-up Summary of Hospital Course include:: 1. Description of specific treatment plan utilized for patients during their course of treatmen. 2. Summarize the time- course for resolution of acute symptoms and/or regressed behaviors. 3. Describe issues identified and worked on during hospitalization. 4. Describe medication utilized. 5. Describe medical problems identified and treated. 6. Reassessment of suicide risk Summary of Hospital Course: pt on admission was started on zoloft with poor response as pt continued to feel anxious and irritable with poor impulse control pt was placed on abilify but developed akathisia pt was then placed on [id number] level found to be 119, so dose was reduced to 1000mg , together with risperidone 2mg and neurontin 100mg treatment plan was discussed with parents in a family meeting upon pt consent cbt group and supportive therapy provided , pt gradually presented with brighter affect and better impulse control on discharge mental status was stable pt denied a[place] CURRENT SUICIDAL OR HOMICIDAL IDEATION DENIED PERCEPTUAL DISTURBANCES - Diagnosis (1) Bipolar 1 disorder Current Visit: Yes Status: Acute - Final Diagnosis (DSM 5) Condition upon Discharge: STABLE DSM 5: impulse control disorder rule out bipolar I disorder MRE mixed severe cannabis abuse Disposition: HOME/ ROUTINE Follow-up Treatment Plan: depakote 1250mg qhs / follow up on depakote level level tomorrow risperidone 2mg neurontin 100mg tid monitor pt for psychopharmacological effects and side effect profile cbt group and supportive therapy Prescriptions/Medication Reconciliation: Benztropine [Cogentin] 1 mg PO HS 30 Days #30 tab Divalproex [Depakote ER(ONCE DAILY)] 1,000 mg PO HS 30 Days #60 ter Gabapentin [Neurontin] 100 mg PO TID 30 Days #90 cap Nicotine 14 mg/24 hr [Nicoderm CQ] 1 patch TD DAILY 30 Days #30 patch Risperidone [Risperdal M-TAB] 2 mg PO HS 30 Days #30 odt - Antipsychotic Medications Pt discharged on 2 or more routine antipsychotic medications: No
[2018-06-08] MEDS ORDERED: Divalproex 500 mg ER (ONCE DAILY formulation) PO SCH (22:00)
== END 2018-06-08 14:32 | disposition home or self-care (01) | DRG 885 ==
LOC: H.ER 19:27 → H.ERHOLD 05-26 00:02 → H.PSYCH 05-26 00:46
PROVIDERS: ADMIT Psychiatry & Neurology Psychiatry; ATTEND Psychiatry & Neurology Psychiatry
PROC: GZ3ZZZZ Medication Management (ICD-10-PCS; principal; 2018-05-26)
PROC: GZHZZZZ Group Psychotherapy (ICD-10-PCS; 2018-05-26)
PROC: GZ56ZZZ Individual Psychotherapy, Supportive (ICD-10-PCS; 2018-05-26)
DX: F31.30 Bipolar disorder, current episode depressed, mild or moderate severity, unspecified (principal); R45.851 Suicidal ideations; F90.9 Attention-deficit hyperactivity disorder, unspecified type; F17.210 Nicotine dependence, cigarettes, uncomplicated; Z91.14 Patient's other noncompliance with medication regimen; F91.3 Oppositional defiant disorder; F63.9 Impulse disorder, unspecified; F12.10 Cannabis abuse, uncomplicated; Z88.0 Allergy status to penicillin; F13.10 Sedative, hypnotic or anxiolytic abuse, uncomplicated; F41.9 Anxiety disorder, unspecified; Z65.3 Problems related to other legal circumstances; Z79.899 Other long term (current) drug therapy; Z59.9 Problem related to housing and economic circumstances, unspecified; Z91.19 Patient's noncompliance with other medical treatment and regimen; G47.00 Insomnia, unspecified